=== PATIENT | female | born 1940 | race Caucasian/White ===

== ENCOUNTER 2017-06-26 04:25 | Emergency (ER) | payer OTHER ==
[~2017-06-26] VITALS: Ht 152.4 cm; Wt 74.4 kg
[2017-06-26 04:30] VITALS: BP_SYST 165
[2017-06-26] MEDS ORDERED: ALPR0.5T96 PO (04:52)
[2017-06-26] MEDS ORDERED: LIP10 PO (04:52)
[2017-06-26] MEDS ORDERED: NOR10 PO (04:52)
[2017-06-26] MEDS ORDERED: PARO20TA51 PO (04:52)
[2017-06-26] MEDS ORDERED: TEMA30CA5 PO (04:52)
[2017-06-26] MEDS ORDERED: CEPH250C PO (04:52)
[2017-06-26] MEDS ORDERED: HYDR-4100 PO (04:52)
[2017-06-26] MEDS ORDERED: GLU500 PO (04:52)
[2017-06-26] MEDS ORDERED: PRO40 PO (04:52)
[2017-06-26] MEDS ORDERED: LOSA100T11 PO (04:52)
[2017-06-26] MEDS ORDERED: LEVO50TA77 PO (04:52)
[2017-06-26] MEDS ORDERED: GLIP10TA11 PO (04:52)
[2017-06-26] MEDS ORDERED: IBUPROFEN 600 MG TABLET PO ONE (09:30)
[2017-06-26 09:42] VITALS: BP_SYST 155
== END 2017-06-26 09:42 | disposition home or self-care (01) ==
LOC: SED 04:25
DX: S00.03XA Contusion of scalp, initial encounter (principal); S60.221A Contusion of right hand, initial encounter; E11.9 Type 2 diabetes mellitus without complications; I10 Essential (primary) hypertension; E78.5 Hyperlipidemia, unspecified; Z88.5 Allergy status to narcotic agent; Z88.2 Allergy status to sulfonamides; Z79.899 Other long term (current) drug therapy; W01.190A Fall on same level from slipping, tripping and stumbling with subsequent striking against furniture, initial encounter; Y93.01 Activity, walking, marching and hiking; Y92.89 Other specified places as the place of occurrence of the external cause; Y99.8 Other external cause status
CPT/HCPCS: 70450-TC; 71045; 99284